=== PATIENT | male | born 1995 | race Two or more races ===

== ENCOUNTER 2019-07-20 07:50 | Emergency (ER) | payer MEDICAID, OTHER ==
[~2019-07-20] VITALS: Ht 170.2 cm; Wt 73.0 kg
[~2019-07-20 07:50] MED LIST: ABIL10 PO; BUSP10TA4 PO; DEPER5 PO; FAMO20TA8 PO; GUAN1TAB PO; HUM100IN SQ; INSU100I24 SQ; METF-414 PO; ONDA4TAB5 PO
[2019-07-20] MEDS ORDERED: SODIUM CHLORIDE 0.9% 1,000 ML IV ONE (08:26)
[2019-07-20 08:55] LABS: BASOPHILS % 0.5 % (0.0-2.0); EOSINOPHILS % 0.6 % (0.0-5.0); HEMATOCRIT. 47.7 % (42.0-52.0); HEMOGLOBIN. 16.7 g/dL (14.0-18.0); LYMPHOCYTES % 21.2 % (20.0-50.0); MEAN CORPUSCULAR HEMOGLOBIN 32.6 pg (28.0-32.0); MEAN CORPUSCULAR VOLUME 92.9 fL (80.0-94.0); MEAN PLATELET VOLUME 9.6 fl (7.4-10.4); MONOCYTES % 7.9 % (2.0-8.0); NEUTROPHILS % 69.8 % (40.0-76.0); PLATELET 225 x1000/uL (130-400); RED BLOOD CELL COUNT 5.13 mill/uL (4.7-6.1); RED CELL DISTRIBUTION WIDTH 12.8 % (11.6-14.6)
[2019-07-20 09:01] LABS: CHLORIDE 97 mEq/L (98-107)
[2019-07-20 09:08] LABS: BETA HYDROXYBUTYRATE 1.1 mMol/L (0.0-0.3)
[2019-07-20 09:09] LABS: CLARITY URINE CLEAR (CLEAR); COLOR URINE YELLOW (YELLOW); KETONES URINE 1+ (NEGATIVE); LEUKOCYTE ESTERASE URINE NEGATIVE (NEGATIVE); NITRITE URINE NEGATIVE (NEGATIVE); OCCULT BLOOD URINE NEGATIVE (NEGATIVE); PROTEIN URINE NEGATIVE (NEGATIVE); UROBILINOGEN URINE 0.2 E.U./dL (0.2-1.0)
[2019-07-20] MEDS ORDERED: INSULIN REGULAR (HUMULIN R) 300UNITS/3ML SUBCUT NR (09:15)
[2019-07-20] MEDS ORDERED: SODIUM CHLORIDE 0.9% 1,000 ML IV NR (09:20)
[2019-07-20] MEDS ORDERED: INSULIN REGULAR (HUMULIN R) 300UNITS/3ML IV NR (09:30)
[2019-07-20 13:56] VITALS: BP 102/70
== END 2019-07-20 15:30 | disposition home or self-care (01) ==
LOC: ER 07:50
DX: E10.65 Type 1 diabetes mellitus with hyperglycemia (principal); F31.9 Bipolar disorder, unspecified; F17.290 Nicotine dependence, other tobacco product, uncomplicated; Z79.899 Other long term (current) drug therapy; Z79.4 Long term (current) use of insulin
CPT/HCPCS: 36415; 80048; 81003; 82010; 82962; 85025; 96361; 96374; 99285; 99406; J1815; J7030

== ENCOUNTER 2019-07-30 11:12 | Inpatient (IN) | payer MEDICAID ==
[~2019-07-30] VITALS: Ht 170.2 cm; Wt 72.6 kg
[2019-07-30] MEDS ORDERED: SODIUM CHLORIDE 0.9% 1,000 ML IV ONE ×3 (11:50→12:45)
[2019-07-30 12:06] LABS: BASOPHILS % 0.8 % (0.0-2.0); CLARITY URINE CLEAR (CLEAR); COLOR URINE YELLOW (YELLOW); EOSINOPHILS % 0.2 % (0.0-5.0); HEMATOCRIT. 50.2 % (42.0-52.0); HEMOGLOBIN. 17.2 g/dL (14.0-18.0); KETONES URINE 3+ (NEGATIVE); LEUKOCYTE ESTERASE URINE NEGATIVE (NEGATIVE); LYMPHOCYTES % 17.2 % (20.0-50.0); MEAN CORPUSCULAR HEMOGLOBIN 32.6 pg (28.0-32.0); MEAN PLATELET VOLUME 9.6 fl (7.4-10.4); NEUTROPHILS % 73.8 % (40.0-76.0); NITRITE URINE NEGATIVE (NEGATIVE); OCCULT BLOOD URINE NEGATIVE (NEGATIVE); PH URINE 5.5 (4.5-8.0); PLATELET 273 x1000/uL (130-400); PROTEIN URINE NEGATIVE (NEGATIVE); RED BLOOD CELL COUNT 5.29 mill/uL (4.7-6.1); UROBILINOGEN URINE 0.2 E.U./dL (0.2-1.0)
[2019-07-30 12:13] LABS: CHLORIDE 89 mEq/L (98-107)
[2019-07-30 12:18] LABS: ETHANOL BLOOD < 10 mg/dL
[2019-07-30 12:20] LABS: BETA HYDROXYBUTYRATE 6.2 mMol/L (0.0-0.3)
[2019-07-30 12:34] LABS: *AMPHETAMINES SCREEN URINE PRESUMTIVE POSITIVE (NEGATIVE); *BARBITURATES SCREEN URINE NEGATIVE (NEGATIVE); *BENZODIAZEPINES SCREEN URINE NEGATIVE (NEGATIVE); *COCAINE SCREEN URINE NEGATIVE (NEGATIVE)
[2019-07-30 12:35] LABS: CANNABINOID URINE SCREEN NEGATIVE (NEGATIVE); METHADONE URINE SCREEN NEGATIVE (NEGATIVE); OPIATES URINE SCREEN NEGATIVE (NEGATIVE); PHENCYCLIDINE URINE SCREEN NEGATIVE (NEGATIVE)
[2019-07-30] MEDS ORDERED: INSULIN REGULAR (HUMULIN R) 300UNITS/3ML SUBCUT ONE (12:45)
[2019-07-30] MEDS ORDERED: DEXTROSE 50% WATER 50ML SYRINGE IV PRN (16:00)
[2019-07-30 17:36] VITALS: BP 119/74
[2019-07-30] MEDS: BLOOD SUGAR DIAGNOSTIC STRIP TEST SCH ×2 (17:45→21:22)
[2019-07-30] MEDS: INSULIN LISPRO 100 UNITS/ML SUBCUT SCH ×2 (17:50→21:48)
[2019-07-30] MEDS ORDERED: LACTULOSE 20G/30ML UDC PO NR (18:30)
[2019-07-30 19:00] VITALS: BP 119/74
[2019-07-30] MEDS ORDERED: INSULIN GLARGINE UD 100 UNITS/ML SYR SUBCUT NR (19:00)
[2019-07-30] MEDS: SODIUM CHLORIDE 0.9% 1,000 ML IV SCH (19:05)
[2019-07-30 20:00] VITALS: BP 113/61
[2019-07-30] MEDS ORDERED: SODIUM POLYSTYRENE SULFONATE 15 G/60 ML BOT PO NR (20:00)
[2019-07-30 23:12] LABS: CHLORIDE 100 mEq/L (98-107)
[2019-07-31] VITALS: BP_SYST 105; BP_SYST 108; BP_DIAS 66; BP_DIAS 71
[2019-07-31 04:00] VITALS: BP 113/63
[2019-07-31] MEDS: BLOOD SUGAR DIAGNOSTIC STRIP TEST SCH ×3 (06:25→17:56)
[2019-07-31] MEDS: SODIUM CHLORIDE 0.9% 1,000 ML IV SCH (06:34)
[2019-07-31 08:00] VITALS: BP 113/63
[2019-07-31] MEDS: INSULIN LISPRO 100 UNITS/ML SUBCUT SCH ×3 (09:22→17:55)
[2019-07-31 12:00] VITALS: BP 101/56
[2019-07-31] MEDS ORDERED: INSU100I28 SQ (12:43)
[2019-07-31] MEDS ORDERED: INSLIS SUBCUT (12:44)
[2019-07-31 16:00] VITALS: BP 117/66
== END 2019-07-31 17:56 | disposition left against medical advice (07) | DRG 420 ==
LOC: ER 11:12 → 6EST 15:35 → EDBEDREQ 15:37 → EDBEDREQTM 15:37 → EDBEDREQ 15:38 → ENRESERV 16:59 → 6EST 17:48
PROVIDERS: ADMIT Family Medicine; ATTEND Family Medicine
DX: E11.65 Type 2 diabetes mellitus with hyperglycemia (principal); E87.5 Hyperkalemia; E87.1 Hypo-osmolality and hyponatremia; E86.0 Dehydration; T38.3X6A Underdosing of insulin and oral hypoglycemic [antidiabetic] drugs, initial encounter; F17.210 Nicotine dependence, cigarettes, uncomplicated; Z79.899 Other long term (current) drug therapy; Z79.4 Long term (current) use of insulin; Y92.89 Other specified places as the place of occurrence of the external cause
CPT/HCPCS: 36415; 71045; 80053; 80061; 80305; 80320; 81003; 82010; 82962; 83036; 85025; 93005; 96372; 99285; J1815; J7030; G0480